=== PATIENT | male | born 1950 | race African-American/Black ===

== ENCOUNTER 2017-02-16 11:44 | Inpatient (IN) | payer OTHER, MEDICAID, MEDICARE ==
[~2017-02-16] VITALS: Ht 167.6 cm; Wt 51.0 kg
[2017-02-16] VITALS (8 sets, daily range): BP systolic 124–149; BP diastolic 77–94; PULSE 91–113; RESP 14–18; TEMP 96.4–102.9; O2SAT 98–100
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
[2017-02-16] MEDS ORDERED: METO25TA3 PO (13:42)
[2017-02-16] MEDS ORDERED: LISI10TA3 PO (13:42)
[2017-02-16] MEDS ORDERED: PRAD150C PO (13:42)
[2017-02-16] MEDS ORDERED: KEPP750T PO (13:42)
[2017-02-16] MEDS ORDERED: TIZA2TAB PO (13:42)
[2017-02-16] MEDS ORDERED: ZOCO20TA PO (13:42)
[2017-02-16] MEDS ORDERED: AMLO5TAB2 PO (13:42)
[2017-02-16] MEDS ORDERED: FURO40TA PO (13:42)
[2017-02-16] MEDS ORDERED: NON-500T13 PO (13:42)
[2017-02-16] MEDS ORDERED: OMEP20TA PO (13:42)
[2017-02-16] MEDS ORDERED: SODIUM CHLOR 0.9% 1000 ML INJ 1,000 ML IV ONE ×2 (13:45→14:30)
[2017-02-16] MEDS ORDERED: ACETAMINOPHEN 650 MG SUPP RECTAL ONE (13:45)
[2017-02-16] MEDS ORDERED: PIPERACIL-TAZO 4.5 GM PREMIX 100 ML IV ONE (14:00)
[2017-02-16] MEDS ORDERED: VANCOMYCIN INJ 1,000 MG in SODIUM CHLOR 0.9% 250 ML INJ 250 ML IV ONE (14:00)
--- NOTE | 2017-02-16 14:20 | RADRPT ---
EXAM DATE/TIME: 02/16/2017 13:35 [place] COMPARISON: No previous studies available for comparison. INDICATIONS : Fever. MEDICAL HISTORY : Hypercholesterolemia. Hypertension SURGICAL HISTORY : None. ENCOUNTER: Initial ACUITY: 1 day PAIN SCORE: Non-responsive. LOCATION: Bilateral chest FINDINGS: Nodular infiltrate is present in left mid and lower lung. Slight cardiomegaly seen. There are atheros clerotic calcifications of the aorta due to chronic atherosclerotic disease. CONCLUSION: Nodular infiltrate left lung most likely inflammatory and pneumonia. Followup is suggested. Pee Muñiz MD on February 16, 2017 at 14:18 Board Certified Radiologist. This report was verified electronically.
[2017-02-16 16:05] LABS: AUTOMATED NEUTROPHIL # 17.3 TH/MM3 (1.8-7.7); BASOPHIL % 0.1 % (0.0-2.0); HEMATOCRIT 43.6 % (39.0-51.0); HEMO FLAGS DIFF FINAL; LYMPH % 1.8 % (9.0-44.0); LYMPHOCYTE # 0.3 TH/MM3 (1.0-4.8); MEAN CELL VOLUME 84.8 FL (80.0-100.0); MEAN CORPUSCULAR HEMOGLOBIN 29.3 PG (27.0-34.0); MEAN CORPUSCULAR HGB CONC 34.6 % (32.0-36.0); NEUT % 93.1 % (16.0-70.0); PLATELET COUNT 345 TH/MM3 (150-450); RED BLOOD COUNT 5.14 MIL/MM3 (4.50-5.90); RED CELL DISTRIBUTION WIDTH 13.7 % (11.6-17.2); WHITE BLOOD COUNT 18.6 TH/MM3 (4.0-11.0)
[2017-02-16 16:19] LABS: BLOOD, URINE NEG (NEG); GLUCOSE,URINE NEG (NEG); HYALINE CAST, URINE 3 /lpf (RARE); KETONE, URINE NEG (NEG); MUCUS URINE MOD /lpf (OCC); NITRITE,URINE NEG (NEG); PH, URINE 5.5 (5.0-8.5); SQUAMOUS EPITHELIAL CELL URINE 1 /hpf (0-5)
[2017-02-16 16:21] LABS: ANION GAP 5 MEQ/L (5-15); AST (GOT) 42 U/L (15-37); BLOOD UREA NITROGEN 22 MG/DL (7-18); CHLORIDE 102 MEQ/L (98-107); GLOMERULAR FILTRATION RATE 75 ML/MIN (>89); MAGNESIUM 1.9 MG/DL (1.5-2.5); POTASSIUM 4.5 MEQ/L (3.5-5.1); SODIUM (NA) 136 MEQ/L (136-145); URINE COLOR ORANGE (YELLW/STRAW)
[2017-02-16 16:23] LABS: ALT (GPT) 28 U/L (12-78)
[2017-02-16 16:24] LABS: BACTERIA, URINE RARE /hpf; COMMENT (UR) CATH-CULTURE IND; CULTURE IF INDICATED CATH CULTURE IND
[2017-02-16 16:25] LABS: ALKALINE PHOSPHATASE 78 U/L (45-117)
[2017-02-16 16:36] LABS: APTT (PATIENT) 34.8 SEC (24.3-30.1); INTERNATIONAL NORMALIZED RATIO 1.1 RATIO; PROTHROMBIN TIME - PATIENT 12.6 SEC (9.8-11.6)
[2017-02-16 17:54] LABS: LACTIC ACID GHOST NOT REPORTABLE
[2017-02-16] MEDS ORDERED: BISACODYL 10 MG SUPP RECTAL PRN (18:00)
[2017-02-16] MEDS ORDERED: LACTULOSE SYRUP 20 GM/30 ML CUP PO PRN (18:00)
[2017-02-16] MEDS ORDERED: NALOXONE HCL 0.4 MG/ML AMP IV PRN (18:00)
[2017-02-16] MEDS ORDERED: ACETAMINOPHEN 325 MG TAB PO PRN (18:00)
[2017-02-16] MEDS ORDERED: MAGNESIUM HYDROXIDE SUSP 30 ML CUP PO PRN (18:00)
[2017-02-16] MEDS ORDERED: ONDANSETRON HCL 4 MG/2 ML VIAL IVP PRN (18:00)
[2017-02-16] MEDS ORDERED: SENNOSIDES 8.6 MG TAB PO PRN (18:00)
[2017-02-16] MEDS ORDERED: Vancomycin Consult Pharmacy 1 EA OTHER SCH (18:00)
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
[2017-02-16 19:06] LABS: CKMB 2.1 NG/ML (0.5-3.6)
[2017-02-16] MEDS: SODIUM CHLOR 0.9% 1000 ML INJ 1,000 ML IV SCH (19:08)
[2017-02-16] MEDS ORDERED: levETIRAcetam 250 MG TAB PO SCH (21:00)
[2017-02-16] MEDS: DOCUSATE SODIUM 50 MG/SENNA 8.6 MG TAB PO SCH (21:00)
[2017-02-16] MEDS: PIPERACIL-TAZO 3.375 GM PREMIX 50 ML IV SCH (23:33)
[2017-02-17] VITALS (7 sets, daily range): BP systolic 121–160; BP diastolic 82–107; PULSE 62–90; RESP 17–19; TEMP 96.2–99.4; O2SAT 95–100
[2017-02-17] MEDS: levETIRAcetam INJ 750 MG in SODIUM CHLORIDE 0.9% INJ 100 ML IV SCH ×2 (00:52→11:56)
[2017-02-17] MEDS: PIPERACIL-TAZO 3.375 GM PREMIX 50 ML IV SCH ×4 (04:56→23:11)
[2017-02-17 05:52] LABS: AUTOMATED NEUTROPHIL # 12.3 TH/MM3 (1.8-7.7); BASOPHIL % 0.1 % (0.0-2.0); HEMO FLAGS DIFF FINAL; LYMPH % 10.2 % (9.0-44.0); LYMPHOCYTE # 1.5 TH/MM3 (1.0-4.8); MEAN CELL VOLUME 85.9 FL (80.0-100.0); MEAN CORPUSCULAR HEMOGLOBIN 28.4 PG (27.0-34.0); MONO % 5.3 % (0.0-8.0); NEUT % 84.4 % (16.0-70.0); PLATELET COUNT 266 TH/MM3 (150-450); RED BLOOD COUNT 4.77 MIL/MM3 (4.50-5.90); RED CELL DISTRIBUTION WIDTH 13.9 % (11.6-17.2); WHITE BLOOD COUNT 14.5 TH/MM3 (4.0-11.0)
[2017-02-17 06:08] LABS: BICARBONATE 25.2 MEQ/L (21.0-32.0); POTASSIUM 4.9 MEQ/L (3.5-5.1)
[2017-02-17] MEDS: DOCUSATE SODIUM 50 MG/SENNA 8.6 MG TAB PO SCH ×2 (08:20→21:04)
[2017-02-17] MEDS: amLODIPine BESYLATE 5 MG TAB PO SCH (08:21)
[2017-02-17] MEDS: SODIUM CHLOR 0.9% 1000 ML INJ 1,000 ML IV SCH ×2 (08:21→21:22)
[2017-02-17] MEDS: PANTOPRAZOLE SOD 20 MG DELAYED RELEASE TAB PO SCH (08:21)
[2017-02-17] MEDS: PRAVASTATIN SOD 40 MG TAB PO SCH (08:21)
[2017-02-17] MEDS: LISINOPRIL 10 MG TAB PO SCH (08:21)
[2017-02-17] MEDS ORDERED: METOPROLOL TARTRATE 25 MG TAB PO SCH (09:00)
[2017-02-17] MEDS ORDERED: NON-FORMULARY DRUG (Simvastatin (Zocor) 20 MG) PO SCH (09:00)
[2017-02-17] MEDS ORDERED: NON-FORMULARY DRUG (Omeprazole 20 MG) PO SCH (09:00)
--- NOTE | 2017-02-17 13:16 | EKG ---
Date Performed: 02/17/2017 Time Performed: 01:01:13 PTAGE: 66 years EKG: ATRIAL FIBRILLATION WITH ABERRANT CONDUCTION OR VENTRICULAR PREMATURE COMPLEXES MARKED LEFT AXIS DEVIATION RIGHT BUNDLE BRANCH BLOCK Compared to prior tracing no significant change ABNORMAL EC G PREVIOUS TRACING : 02/16/2017 21.05 DOCTOR: Parish Schroeder Interpretating Date/Time 02/17/2017 13:15:47
--- NOTE | 2017-02-17 13:16 | EKG ---
Date Performed: 02/16/2017 Time Performed: 13:51:44 PTAGE: 66 years EKG: ATRIAL FIBRILLATION WITH RAPID VENTRICULAR RESPONSE WITH ABERRANT CONDUCTION OR VENTRICULAR PREMATURE COMPLEXES MARKED RIGHT AXIS DEVIATION RIGHT BUNDLE BRANCH BLOCK ABNORMAL ECG NO PREVIOUS TRACING DOCTOR: Parish Schroeder Interpretating Date/Time 02/17/2017 13:15:10
--- NOTE | 2017-02-17 13:16 | EKG ---
Date Performed: 02/16/2017 Time Performed: 21:05:45 PTAGE: 66 years EKG: ATRIAL FIBRILLATION WITH ABERRANT CONDUCTION OR VENTRICULAR PREMATURE COMPLEXES RIGHT BUNDL E BRANCH BLOCK LEFT ANTERIOR FASCICULAR BLOCK Compared to previous tracing, ventricular response to t he atrial fibrillation is slightly slower ABNORMAL ECG PREVIOUS TRACING : 02/16/2017 13.51 DOCTOR: Parish Schroeder Interpretating Date/Time 02/17/2017 13:15:39
--- NOTE | 2017-02-17 13:58 | HHI.PR ---
Subjective Remarks Follow up encephalopathy, pneumonia, sepsis. Patient's daughter is at bedside and states that the patient is more alert today. Still minimally verbal. He has not complained of chest pain. He denies pain, dyspnea. Objective Vitals Vital Signs Date Time Temp Pulse Resp B/P Pulse Ox O2 Delivery O2 Flow Rate FiO2 02/17/17 12:00 96.9 78 19 155/107 96 02/17/17 08:00 96.9 72 18 160/87 95 02/17/17 04:00 96.2 73 17 130/93 100 02/17/17 00:00 96.3 62 17 121/82 100 02/16/17 23:06 91 02/16/17 21:00 96.4 99 18 132/94 100 02/16/17 19:00 99.0 102 18 124/89 100 Nasal Cannula 2 02/16/17 18:30 106 16 129/85 98 Nasal Cannula 2 02/16/17 16:30 104 16 128/92 100 Nasal Cannula 2 02/16/17 14:30 108 18 126/92 100 Room Air 2 I/O 02/16/17 02/16/17 02/16/17 02/17/17 02/17/17 02/17/17 07:00 15:00 23:00 07:00 15:00 23:00 Intake Total 227 ml 536 ml 0 ml Balance 227 ml 536 ml 0 ml Intake Oral 0 ml 0 ml 0 ml IV Total 227 ml 536 ml # Voids 2 3 Result Diagram: 02/17/17 0419 02/17/17 0419 Imaging Last Impressions Chest X-Ray 02/16/17 1333 Signed Impressions: Service Date/Time: Thursday, February 16, 2017 13:35 - CONCLUSION: Nodular infiltrate left lung most likely inflammatory and pneumonia. Followup is suggested. Pee Muñiz MD Objective Remarks General: Elderly male in no acute distress. Heart: Irregular rhythm. Lungs: Decreased breath sounds in both bases. Breathing is nonlabored. Abdomen: Soft, nontender, nondistended. Extremities: No lower extremity edema. Psych: Alert, does not verbally answer questions. Procedures None Urinary Catheter: No Vascular Central Line Catheter: No A/P Problem List: (1) Pneumonia ICD Code: J18.9 Status: Acute (2) Afib ICD Code: I48.91 Status: Chronic (3) Severe sepsis ICD Code: A41.9 Status: Acute (4) HTN (hypertension) ICD Code: I10 Status: Chronic (5) Seizure disorder ICD Code: G40.909 Status: Chronic (6) Encephalopathy ICD Code: G93.40 Status: Acute Assessment and Plan 1. Sepsis secondary to pneumonia: Possibly aspiration pneumonia. Continue antibiotics, IV fluids. 2. Encephalopathy: Secondary to above. Per patient's family, his mental status has improved somewhat today. 3. Atrial fibrillation with RVR: Rate control is improved. Continue Pradaxa, metoprolol. Cardiology consult. 4. Mildly elevated troponin: Likely secondary to sepsis. 5. Hypertension: Continue amlodipine, lisinopril, metoprolol. Blood pressure has been elevated. Vasotec as needed. 6. Hyperlipidemia: Continue statin. 7. Seizure disorder: Continue Keppra. Seizure precautions. 8. Dysphagia: Continue speech therapy. Pure diet. 9. GI prophylaxis: Protonix. 10. DVT prophylaxis: SCDs, Pradaxa. Problem Qualifiers (1) Pneumonia: Qualified Code: J18.9 - Pneumonia of left lung due to infectious organism, unspecified part of lung Scotty Villegas MD Feb 17, 2017 13:58
[2017-02-17] MEDS ORDERED: ENALAPRILAT 1.25 MG/ML VIAL IV PUSH PRN (14:00)
[2017-02-17] MEDS: VANCOMYCIN 1,000 MG/NS 250 ML IV SCH ×2 (15:31)
--- NOTE | 2017-02-17 17:59 | MB ---
cc: HARINDER SAMANIEGO MD DATE OF CONSULTATION: 02/17/2017. REASON FOR CONSULTATION: Atrial fibrillation and minimally elevated troponin. HISTORY OF PRESENT ILLNESS: The patient is a 66-year-old gentleman who is nonverbal, or minimally verbal, who presented for a change in mental status and was found to have urosepsis and has already improved. Additionally, he was found to have mildly rapid atrial fibrillation, which has since improved. He normally takes Pradaxa for anticoagulation. All history is obtained from the daughter as the patient is nonverbal. PAST MEDICAL HISTORY: 1. Chronic atrial fibrillation on Pradaxa. 2. Patient's daughter reports normal nuclear stress test in October of this year. 3. Hypertension. 4. Hyperlipidemia. 5. Dementia. 6. Seizure. CURRENT MEDICATIONS: 1. Keppra. 2. Vancomycin. 3. Amlodipine. 4. Lisinopril. 5. Metoprolol tartrate 25 milligrams p.o. daily. 6. Pravachol 40 milligrams daily. 7. Zosyn. 8. Pradaxa 150 milligrams twice a day. ALLERGIES: NO KNOWN DRUG ALLERGIES. PHYSICAL EXAMINATION: VITAL SIGNS: Afebrile, pulse 90, respiratory rate 17, blood pressure 139/93, satting 96%. GENERAL: Nonverbal, chronically ill-appearing -[place] gentleman in no distress. NECK: No jugular venous distention. LUNGS: Clear to auscultation bilaterally. CARDIOVASCULAR: An irregularly irregular rhythm with a regular rate. No murmurs appreciated. ABDOMEN: Benign. EXTREMITIES: No edema. LABORATORY DATA: Sodium 142, potassium 4.9, chloride 111, bicarbonate 25.2, BUN 15, creatinine 0.97. Troponins are 0.07, 0.08 and 0.07. EKGS: EKG shows atrial fibrillation with right bundle-branch block initially at a rate of 100, now rates in the 80s with nonspecific S-T changes. IMPRESSION: 1. Atrial fibrillation. The patient has chronic atrial fibrillation and his Pradaxa has been re-started. I will change his metoprolol tartrate to twice a day for better rate control. 2. Elevated troponin. The patient's minimally elevated troponin is nonspecific, likely due to his urosepsis. His daughter reports a normal nuclear stress test earlier this year. Given the patient's overall condition, I do not think any further ischemic workup is warranted. I will be available on an as-needed basis. Please call with any further questions. MD LETTY Nolasco/STEPHANIE /5:51 PM /5:56 PM
[2017-02-17] MEDS: levETIRAcetam 250 MG TAB PO SCH (21:03)
[2017-02-17] MEDS: DABIGATRAN ETEXILATE 150 MG CAP PO SCH (21:04)
[2017-02-17] MEDS: METOPROLOL TARTRATE 25 MG TAB PO SCH (21:04)
[2017-02-18] VITALS (9 sets, daily range): BP systolic 121–154; BP diastolic 74–103; PULSE 60–85; RESP 16–18; TEMP 97.6–98.7; O2SAT 92–100
[2017-02-18] MEDS: PIPERACIL-TAZO 3.375 GM PREMIX 50 ML IV SCH ×4 (05:26→23:45)
[2017-02-18 06:30] LABS: AUTOMATED NEUTROPHIL # 9.5 TH/MM3 (1.8-7.7); BASOPHIL # 0.1 TH/MM3 (0-0.2); BASOPHIL % 0.5 % (0.0-2.0); EOSINOPHIL % 0.2 % (0.0-4.0); HEMATOCRIT 40.4 % (39.0-51.0); HEMO FLAGS DIFF FINAL; LYMPH % 13.8 % (9.0-44.0); LYMPHOCYTE # 1.7 TH/MM3 (1.0-4.8); MEAN CELL VOLUME 86.1 FL (80.0-100.0); MEAN CORPUSCULAR HEMOGLOBIN 27.7 PG (27.0-34.0); MEAN CORPUSCULAR HGB CONC 32.2 % (32.0-36.0); MONO % 7.9 % (0.0-8.0); NEUT % 77.6 % (16.0-70.0); PLATELET COUNT 283 TH/MM3 (150-450); RED BLOOD COUNT 4.69 MIL/MM3 (4.50-5.90); RED CELL DISTRIBUTION WIDTH 13.7 % (11.6-17.2); WHITE BLOOD COUNT 12.2 TH/MM3 (4.0-11.0)
[2017-02-18 06:50] LABS: BICARBONATE 25.5 MEQ/L (21.0-32.0); POTASSIUM 3.8 MEQ/L (3.5-5.1)
[2017-02-18] MEDS: DABIGATRAN ETEXILATE 150 MG CAP PO SCH ×2 (08:11→21:34)
[2017-02-18] MEDS: DOCUSATE SODIUM 50 MG/SENNA 8.6 MG TAB PO SCH ×2 (08:11→21:34)
[2017-02-18] MEDS: LISINOPRIL 10 MG TAB PO SCH (08:11)
[2017-02-18] MEDS: levETIRAcetam 250 MG TAB PO SCH ×2 (08:11→21:34)
[2017-02-18] MEDS: PRAVASTATIN SOD 40 MG TAB PO SCH (08:11)
[2017-02-18] MEDS: METOPROLOL TARTRATE 25 MG TAB PO SCH ×2 (08:11→21:35)
[2017-02-18] MEDS: amLODIPine BESYLATE 5 MG TAB PO SCH (08:12)
[2017-02-18] MEDS: PANTOPRAZOLE SOD 20 MG DELAYED RELEASE TAB PO SCH (08:12)
--- NOTE | 2017-02-18 14:36 | HHI.PR ---
Subjective Remarks Follow up encephalopathy, pneumonia, sepsis, atrial fibrillation. The patient's daughter is again at bedside and states that he continues to improve. She was concerned about his left leg earlier today, but now he is moving it normally. He appears to be more alert. He has not indicated any pain. Objective Vitals Vital Signs Date Time Temp Pulse Resp B/P Pulse Ox O2 Delivery O2 Flow Rate FiO2 02/18/17 12:21 83 02/18/17 12:00 98.1 68 18 121/74 97 02/18/17 08:21 60 97 02/18/17 08:00 98.2 80 17 149/103 100 02/18/17 04:00 98.3 80 17 154/87 100 02/18/17 00:00 98.7 76 18 130/77 100 02/17/17 22:57 71 02/17/17 20:00 99.4 84 18 146/87 100 02/17/17 16:00 98.6 90 17 139/93 96 I/O 02/17/17 02/17/17 02/17/17 02/18/17 02/18/17 02/18/17 06:59 14:59 22:59 06:59 14:59 22:59 Intake Total 536 ml 1040 ml 1600 ml 831 ml Output Total 200 ml 600 ml 650 ml Balance 536 ml 840 ml 1000 ml 181 ml Intake Oral 0 ml 480 ml 240 ml 240 ml IV Total 536 ml 560 ml 1360 ml 591 ml Output Urine Total 200 ml 600 ml 650 ml # Voids 3 # Bowel Movements 1 1 Result Diagram: 02/18/17 0508 02/18/17 0508 Imaging Last Impressions Chest X-Ray 02/16/17 1333 Signed Impressions: Service Date/Time: Thursday, February 16, 2017 13:35 - CONCLUSION: Nodular infiltrate left lung most likely inflammatory and pneumonia. Followup is suggested. Pee Muñiz MD Objective Remarks General: Elderly male in no acute distress. Heart: Irregular rhythm, tachycardic. Lungs: Decreased breath sounds in both bases. Breathing is nonlabored. Abdomen: Soft, nontender, nondistended. Extremities: No lower extremity edema. Psych: Alert, does not verbally answer questions. Procedures None Urinary Catheter: No Vascular Central Line Catheter: No A/P Problem List: (1) Pneumonia ICD Code: J18.9 Status: Acute (2) Afib ICD Code: I48.91 Status: Chronic (3) Severe sepsis ICD Code: A41.9 Status: Acute (4) HTN (hypertension) ICD Code: I10 Status: Chronic (5) Seizure disorder ICD Code: G40.909 Status: Chronic (6) Encephalopathy ICD Code: G93.40 Status: Acute Assessment and Plan 1. Sepsis secondary to pneumonia: Possibly aspiration pneumonia. Continue antibiotics, IV fluids. 2. Encephalopathy: Secondary to above. Mental status is improving. 3. Atrial fibrillation with RVR: Rate control is improved. Continue Pradaxa, metoprolol. Appreciate cardiology recommendations. 4. Mildly elevated troponin: Likely secondary to sepsis. 5. Hypertension: Continue amlodipine, lisinopril, metoprolol. Vasotec as needed. 6. Hyperlipidemia: Continue statin. 7. Seizure disorder: Continue Keppra. Seizure precautions. 8. Dysphagia: Continue speech therapy. Pure diet. 9. GI prophylaxis: Protonix. 10. DVT prophylaxis: SCDs, Pradaxa. Discharge Planning Possible discharge in next 1-2 days. I have recommended care home facility , however the patient's daughter is adamantly opposed to sending him to any facility. She states that she will take care of him at home. Problem Qualifiers (1) Pneumonia: Qualified Code: J18.9 - Pneumonia of left lung due to infectious organism, unspecified part of lung Scotty Villegas MD Feb 18, 2017 14:36
[2017-02-18] MEDS ORDERED: NS + KCL 20 MEQ INJ 1,000 ML IV SCH (14:45)
[2017-02-18] MEDS: VANCOMYCIN 1,000 MG/NS 250 ML IV SCH ×2 (15:00)
[2017-02-19] VITALS (10 sets, daily range): BP systolic 138–186; BP diastolic 80–115; PULSE 73–92; RESP 16–19; TEMP 96.6–99.2; O2SAT 96–100
[2017-02-19] MEDS: PIPERACIL-TAZO 3.375 GM PREMIX 50 ML IV SCH ×3 (06:24→18:15)
[2017-02-19] MEDS: amLODIPine BESYLATE 5 MG TAB PO SCH (09:41)
[2017-02-19] MEDS: DABIGATRAN ETEXILATE 150 MG CAP PO SCH ×2 (09:41→20:04)
[2017-02-19] MEDS: PANTOPRAZOLE SOD 20 MG DELAYED RELEASE TAB PO SCH (09:41)
[2017-02-19] MEDS: DOCUSATE SODIUM 50 MG/SENNA 8.6 MG TAB PO SCH ×2 (09:41→20:04)
[2017-02-19] MEDS: METOPROLOL TARTRATE 25 MG TAB PO SCH ×2 (09:41→20:04)
[2017-02-19] MEDS: LISINOPRIL 10 MG TAB PO SCH (09:41)
[2017-02-19] MEDS: levETIRAcetam 250 MG TAB PO SCH ×2 (09:41→20:04)
[2017-02-19] MEDS: PRAVASTATIN SOD 40 MG TAB PO SCH (09:42)
[2017-02-19 09:59] LABS: AUTOMATED NEUTROPHIL # 8.5 TH/MM3 (1.8-7.7); BASOPHIL # 0.1 TH/MM3 (0-0.2); BASOPHIL % 0.6 % (0.0-2.0); EOSINOPHIL % 0.2 % (0.0-4.0); HEMATOCRIT 41.7 % (39.0-51.0); HEMO FLAGS DIFF FINAL; LYMPH % 14.8 % (9.0-44.0); LYMPHOCYTE # 1.6 TH/MM3 (1.0-4.8); MEAN CELL VOLUME 84.8 FL (80.0-100.0); MEAN CORPUSCULAR HEMOGLOBIN 28.1 PG (27.0-34.0); MEAN CORPUSCULAR HGB CONC 33.1 % (32.0-36.0); MONO % 7.2 % (0.0-8.0); NEUT % 77.2 % (16.0-70.0); PLATELET COUNT 298 TH/MM3 (150-450); RED BLOOD COUNT 4.92 MIL/MM3 (4.50-5.90); RED CELL DISTRIBUTION WIDTH 13.9 % (11.6-17.2); WHITE BLOOD COUNT 10.9 TH/MM3 (4.0-11.0)
[2017-02-19 10:18] LABS: BICARBONATE 27.2 MEQ/L (21.0-32.0); POTASSIUM 3.7 MEQ/L (3.5-5.1)
[2017-02-19] MEDS ORDERED: PHARMACY ORDERED LAB ONE (15:45)
--- NOTE | 2017-02-19 15:48 | HHI.PR ---
Subjective Remarks Follow up sepsis, pneumonia, hypertension. No events reported by nursing. Family not at bedside at this time. Patient is nonverbal. Objective Vitals Vital Signs Date Time Temp Pulse Resp B/P Pulse Ox O2 Delivery O2 Flow Rate FiO2 02/19/17 12:00 98.4 92 17 144/99 98 02/19/17 11:03 138/80 02/19/17 09:13 186/89 02/19/17 08:00 97.1 87 18 150/111 99 02/19/17 04:00 98.8 88 18 160/106 100 02/19/17 00:00 96.6 73 16 150/105 100 02/18/17 21:00 85 02/18/17 20:00 98.2 75 16 148/88 92 02/18/17 16:00 97.6 80 17 137/75 97 I/O 02/18/17 02/18/17 02/18/17 02/19/17 02/19/17 02/19/17 06:59 14:59 22:59 06:59 14:59 22:59 Intake Total 831 ml 650 ml 1499 ml 575 ml Output Total 650 ml 1325 ml 1625 ml 800 ml 375 ml Balance 181 ml -675 ml -1625 ml 699 ml 200 ml Intake Oral 240 ml 650 ml 575 ml IV Total 591 ml 1499 ml Output Urine Total 650 ml 1325 ml 1625 ml 800 ml 375 ml Stool Total 0 ml # Voids 2 # Bowel Movements 1 0 4 Result Diagram: 02/19/17 0930 02/19/17 0930 Imaging Last Impressions Chest X-Ray 02/16/17 1333 Signed Impressions: Service Date/Time: Thursday, February 16, 2017 13:35 - CONCLUSION: Nodular infiltrate left lung most likely inflammatory and pneumonia. Followup is suggested. Pee Muñiz MD Objective Remarks General: Elderly male in no acute distress. Heart: Irregular rhythm, tachycardic. Lungs: Decreased breath sounds in both bases. Breathing is nonlabored. Abdomen: Soft, nontender, nondistended. Extremities: No lower extremity edema. Psych: Alert, nonverbal. Procedures None Urinary Catheter: No Vascular Central Line Catheter: No A/P Problem List: (1) Pneumonia ICD Code: J18.9 Status: Acute (2) Afib ICD Code: I48.91 Status: Chronic (3) Severe sepsis ICD Code: A41.9 Status: Acute (4) HTN (hypertension) ICD Code: I10 Status: Chronic (5) Seizure disorder ICD Code: G40.909 Status: Chronic (6) Encephalopathy ICD Code: G93.40 Status: Acute Assessment and Plan 1. Sepsis secondary to pneumonia: Possibly aspiration pneumonia. Continue antibiotics. 2. Encephalopathy: Secondary to above. Mental status is improving. 3. Atrial fibrillation with RVR: Rate control is improved. Continue Pradaxa, metoprolol. Appreciate cardiology recommendations. 4. Mildly elevated troponin: Likely secondary to sepsis. 5. Hypertension: Continue amlodipine, lisinopril, metoprolol. Vasotec as needed. BP elevated. Stop IV fluids. 6. Hyperlipidemia: Continue statin. 7. Seizure disorder: Continue Keppra. Seizure precautions. 8. Dysphagia: Continue speech therapy. Pure diet. 9. GI prophylaxis: Protonix. 10. DVT prophylaxis: SCDs, Pradaxa. 11. Continue PT/OT. Discharge Planning Possible discharge in next 1-2 days. I have recommended senior care facility , however the patient's daughter is adamantly opposed to sending him to any facility. She states that she will take care of him at home. He will need 24 hour care due to his cognitive status. Problem Qualifiers (1) Pneumonia: Qualified Code: J18.9 - Pneumonia of left lung due to infectious organism, unspecified part of lung Scotty Villegas MD Feb 19, 2017 15:48
[2017-02-19] MEDS: VANCOMYCIN 1,000 MG/NS 250 ML IV SCH ×2 (16:42)
[2017-02-20] VITALS (8 sets, daily range): BP systolic 121–175; BP diastolic 80–109; PULSE 80–113; RESP 16–19; TEMP 96.5–98.9; O2SAT 92–100
[2017-02-20] MEDS: PIPERACIL-TAZO 3.375 GM PREMIX 50 ML IV SCH ×4 (00:47→17:42)
[2017-02-20] MEDS ORDERED: VANCOMYCIN INJ 1,100 MG in SODIUM CHLOR 0.9% 250 ML INJ 250 ML IV SCH (06:00)
[2017-02-20 06:57] LABS: BICARBONATE 28.2 MEQ/L (21.0-32.0); POTASSIUM 3.9 MEQ/L (3.5-5.1)
[2017-02-20] MEDS: LISINOPRIL 10 MG TAB PO SCH (08:12)
[2017-02-20] MEDS: METOPROLOL TARTRATE 25 MG TAB PO SCH ×2 (08:12→21:03)
[2017-02-20] MEDS: PRAVASTATIN SOD 40 MG TAB PO SCH (08:12)
[2017-02-20] MEDS: DOCUSATE SODIUM 50 MG/SENNA 8.6 MG TAB PO SCH ×2 (08:12→21:03)
[2017-02-20] MEDS: DABIGATRAN ETEXILATE 150 MG CAP PO SCH ×2 (08:12→21:03)
[2017-02-20] MEDS: levETIRAcetam 250 MG TAB PO SCH ×2 (08:12→21:03)
[2017-02-20] MEDS: PANTOPRAZOLE SOD 20 MG DELAYED RELEASE TAB PO SCH (08:12)
[2017-02-20] MEDS: amLODIPine BESYLATE 5 MG TAB PO SCH (08:13)
[2017-02-20] MEDS ORDERED: amLODIPine BESYLATE 5 MG TAB PO ONE (11:30)
--- NOTE | 2017-02-20 11:31 | HHI.PR ---
Subjective Remarks Follow up pneumonia, sepsis, hypertension. Patient nonverbal. No family at bedside. Per nursing, no events overnight. Objective Vitals Vital Signs Date Time Temp Pulse Resp B/P Pulse Ox O2 Delivery O2 Flow Rate FiO2 02/20/17 08:00 97.8 80 17 170/109 100 02/20/17 04:00 96.5 83 16 160/95 100 02/20/17 00:00 98.8 88 16 152/97 92 02/19/17 20:00 99.2 83 16 163/115 96 02/19/17 19:40 90 02/19/17 18:15 98 Room Air 02/19/17 16:00 98.7 80 19 138/90 99 02/19/17 12:00 98.4 92 17 144/99 98 I/O 02/19/17 02/19/17 02/19/17 02/20/17 02/20/17 02/20/17 07:00 15:00 23:00 07:00 15:00 23:00 Intake Total 1499 ml 942 ml 100 ml 120 ml Output Total 800 ml 375 ml 1200 ml Balance 699 ml 567 ml -1100 ml 120 ml Intake Oral 575 ml 120 ml IV Total 1499 ml 367 ml 100 ml Output Urine Total 800 ml 375 ml 1200 ml # Voids 2 # Bowel Movements 0 4 1 Result Diagram: 02/19/17 0930 02/20/17 0606 Imaging Last Impressions Chest X-Ray 02/16/17 1333 Signed Impressions: Service Date/Time: Thursday, February 16, 2017 13:35 - CONCLUSION: Nodular infiltrate left lung most likely inflammatory and pneumonia. Followup is suggested. Pee Muñiz MD Objective Remarks General: Elderly male in no acute distress. Heart: Irregular rhythm. Lungs: Decreased breath sounds in both bases. Breathing is nonlabored. Abdomen: Soft, nontender, nondistended. Extremities: No lower extremity edema. Psych: Alert, nonverbal. Procedures None Urinary Catheter: No Vascular Central Line Catheter: No A/P Problem List: (1) Pneumonia ICD Code: J18.9 Status: Acute (2) Afib ICD Code: I48.91 Status: Chronic (3) Severe sepsis ICD Code: A41.9 Status: Acute (4) HTN (hypertension) ICD Code: I10 Status: Chronic (5) Seizure disorder ICD Code: G40.909 Status: Chronic (6) Encephalopathy ICD Code: G93.40 Status: Acute Assessment and Plan 1. Sepsis secondary to pneumonia: Possibly aspiration pneumonia. Continue antibiotics. 2. Encephalopathy: Secondary to above. Mental status is improving, reportedly near baseline. 3. Atrial fibrillation with RVR: Rate control is improved. Continue Pradaxa, metoprolol. Appreciate cardiology recommendations. 4. Mildly elevated troponin: Likely secondary to sepsis. 5. Hypertension: Continue lisinopril, metoprolol. Vasotec as needed. BP remains elevated. Increase amlodipine. 6. Hyperlipidemia: Continue statin. 7. Seizure disorder: Continue Keppra. Seizure precautions. 8. Dysphagia: Continue speech therapy. Pure diet. 9. GI prophylaxis: Protonix. 10. DVT prophylaxis: SCDs, Pradaxa. 11. Continue PT/OT. Discharge Planning Possible discharge tomorrow if arrangements can be made for safe discharge. I have recommended correction facility, however the patient's daughter is adamantly opposed to sending him to any facility. She states that she will take care of him at home. He will need 24 hour care due to his cognitive status. Problem Qualifiers (1) Pneumonia: Qualified Code: J18.9 - Pneumonia of left lung due to infectious organism, unspecified part of lung Scotty Villegas MD Feb 20, 2017 11:31
[2017-02-21] VITALS: BP 154/82; PULSE 86; RESP 17; TEMP 98.2; O2SAT 97
[2017-02-21] MEDS: PIPERACIL-TAZO 3.375 GM PREMIX 50 ML IV SCH ×4 (00:35→16:54)
[2017-02-21] MEDS: VANCOMYCIN 1,000 MG/NS 250 ML IV SCH ×4 (00:36→16:54)
[2017-02-21 04:00] VITALS: BP 168/98; PULSE 56; RESP 17; TEMP 96.8; O2SAT 97
[2017-02-21] MEDS: PANTOPRAZOLE SOD 20 MG DELAYED RELEASE TAB PO SCH (07:33)
[2017-02-21] MEDS: DOCUSATE SODIUM 50 MG/SENNA 8.6 MG TAB PO SCH (07:33)
[2017-02-21] MEDS: levETIRAcetam 250 MG TAB PO SCH (07:33)
[2017-02-21] MEDS: LISINOPRIL 10 MG TAB PO SCH (07:33)
[2017-02-21] MEDS: DABIGATRAN ETEXILATE 150 MG CAP PO SCH (07:33)
[2017-02-21] MEDS: PRAVASTATIN SOD 40 MG TAB PO SCH (07:33)
[2017-02-21] MEDS: METOPROLOL TARTRATE 25 MG TAB PO SCH (07:34)
[2017-02-21 08:00] VITALS: BP 170/104; PULSE 97; RESP 19; TEMP 98.7; O2SAT 98
[2017-02-21 12:00] VITALS: BP 126/88; PULSE 76; RESP 19; TEMP 97.8; O2SAT 96
--- NOTE | 2017-02-21 14:33 | HHI.FF ---
Face to Face Verification Diagnosis: (1) Encephalopathy (2) Afib (3) HTN (hypertension) (4) Pneumonia (5) Dementia Physical Therapy Order: Evaluate and Treat Occupational Therapy Order: Evaluate and Treat Speech Therapy Order: To Improve: Speech and communication skills, Cognitive skills, Swallowing Home Health Nursing Order: Nursing assessment with vital signs I have seen patient Eliceo Coburn on 02/21/17. My clinical findings support the need for the requested home health care services because: Ltd mobility - disease progression Deconditioned w/ increased weakness Limited ability to care for self Need for psychosocial assistance Impaired cognition/judgement High risk of falls I certify that my clinical findings support that this patient is homebound because: Impaired cognitive ability/safety Unsteady gait/balance Unsafe to leave home unassisted Need for psychosocial assistance Scotty Villegas MD Feb 21, 2017 14:33
[2017-02-21] MEDS ORDERED: METO25TA3 PO (14:54)
[2017-02-21] MEDS ORDERED: AMOX875T2 PO (14:54)
[2017-02-21] MEDS ORDERED: AMLO10 PO (14:54)
--- NOTE | 2017-02-21 14:57 | HHI.FF ---
Face to Face Verification Diagnosis: (1) Sepsis (2) Seizure disorder (3) Pneumonia (4) HTN (hypertension) (5) Afib (6) Encephalopathy (7) Dementia Physical Therapy Order: Evaluate and Treat Occupational Therapy Order: Evaluate and Treat Home Health Nursing Order: Nursing assessment with vital signs I have seen patient Eliceo Coburn on 02/21/17. My clinical findings support the need for the requested home health care services because: Ltd mobility - disease progression Deconditioned w/ increased weakness Limited ability to care for self Need for psychosocial assistance Impaired cognition/judgement High risk of falls I certify that my clinical findings support that this patient is homebound because: Impaired cognitive ability/safety Unsteady gait/balance Unsafe to leave home unassisted Need for psychosocial assistance Scotty Villegas MD Feb 21, 2017 14:57
--- NOTE | 2017-02-21 15:02 | HHI.PR ---
Subjective Remarks Follow-up pneumonia, dementia. The patient's daughter is concerned about his leg. She states that it is painful. There was no injury reported. She wants to take him home today. Objective Vitals Vital Signs Date Time Temp Pulse Resp B/P Pulse Ox O2 Delivery O2 Flow Rate FiO2 02/21/17 12:00 97.8 76 19 126/88 96 02/21/17 08:00 98.7 97 19 170/104 98 02/21/17 04:00 96.8 56 17 168/98 97 02/21/17 00:00 98.2 86 17 154/82 97 02/20/17 20:45 Room Air 02/20/17 20:45 113 02/20/17 20:00 98.9 92 17 175/89 97 02/20/17 16:00 98.8 91 17 121/80 99 I/O 02/20/17 02/20/17 02/20/17 02/21/17 02/21/17 02/21/17 07:00 15:00 23:00 07:00 15:00 23:00 Intake Total 1080 ml 480 ml 590 ml 1850 ml Output Total 1000 ml 600 ml 600 ml 1200 ml Balance 80 ml -120 ml -10 ml 650 ml Intake Oral 1080 ml 480 ml 240 ml 1800 ml IV Total 350 ml 50 ml Output Urine Total 1000 ml 600 ml 600 ml 1200 ml # Bowel Movements 2 1 1 Result Diagram: 02/19/17 0930 02/20/17 0606 Imaging Last Impressions Chest X-Ray 02/16/17 1333 Signed Impressions: Service Date/Time: Thursday, February 16, 2017 13:35 - CONCLUSION: Nodular infiltrate left lung most likely inflammatory and pneumonia. Followup is suggested. Pee Muñiz MD Objective Remarks General: Elderly male in no acute distress. Heart: Irregular rhythm. Lungs: Decreased breath sounds in both bases. Breathing is nonlabored. Abdomen: Soft, nontender, nondistended. Extremities: No lower extremity edema. Mild erythema of the left lower leg laterally. Tiny abrasion just below the left knee, ~3mm diameter. Psych: Alert, nonverbal. Procedures None Urinary Catheter: No Vascular Central Line Catheter: No A/P Problem List: (1) Pneumonia ICD Code: J18.9 Status: Acute (2) Afib ICD Code: I48.91 Status: Chronic (3) Severe sepsis ICD Code: A41.9 Status: Acute (4) HTN (hypertension) ICD Code: I10 Status: Chronic (5) Seizure disorder ICD Code: G40.909 Status: Chronic (6) Encephalopathy ICD Code: G93.40 Status: Acute Assessment and Plan 1. Sepsis secondary to pneumonia: Possibly aspiration pneumonia. Continue antibiotics. Transition to oral antibiotics at discharge. 2. Encephalopathy: Secondary to above. Mental status is improving, reportedly near baseline. 3. Atrial fibrillation with RVR: Rate control is improved. Continue Pradaxa, metoprolol. Appreciate cardiology recommendations. 4. Mildly elevated troponin: Likely secondary to sepsis. 5. Hypertension: Continue lisinopril, metoprolol, amlodipine. Vasotec as needed. BP improved. 6. Hyperlipidemia: Continue statin. 7. Seizure disorder: Continue Keppra. Seizure precautions. 8. Dysphagia: Continue speech therapy. Pure diet. 9. GI prophylaxis: Protonix. 10. DVT prophylaxis: SCDs, Pradaxa. 11. Continue PT/OT. Discharge Planning Possible discharge home today pending x-ray results. Patient's daughter is adamant that he should not go to senior care facility, although I have recommended that. I have discussed this with her at length. She is worried about sending him to SNF because of previous issues with [facility] of her [facility]. I have expressed to her that the patient needs 24-hour care. She has assured me that he will receive 24 hour care. At this time she will be staying home with him all the time, except when she can find someone else to come take care of him temporarily. She is actively seeking home care nursing. Paperwork was filled out for a Medicaid waiver for the patient. Problem Qualifiers (1) Pneumonia: Qualified Code: J18.9 - Pneumonia of left lung due to infectious organism, unspecified part of lung Scotty Villegas MD Feb 21, 2017 15:02
[2017-02-21 16:00] VITALS: BP 135/94; PULSE 84; RESP 19; TEMP 97.8; O2SAT 100
--- NOTE | 2017-02-21 16:00 | RADRPT ---
EXAM DATE/TIME: 02/21/2017 15:44 [facility] COMPARISON: No previous studies available for comparison. INDICATIONS : Pain MEDICAL HISTORY : Hypercholesterolemia. Hypertension SURGICAL HISTORY : None. ENCOUNTER: Initial ACUITY: 4 - 6 days PAIN SCORE: Non-responsive. LOCATION: Left Ankle FINDINGS: Three view exam was performed of the left ankle. The bony structures are in normal alignment. No ev idence of fracture, dislocation, or soft tissue swelling. The ankle mortise is intact. No radiopaqu e foreign bodies are seen. Bony mineralization is normal. CONCLUSION: Unremarkable examination of the left ankle. Gabe Roberts MD on February 21, 2017 at 15:58 Board Certified Radiologist. This report was verified electronically.
[2017-02-21] MEDS ORDERED: COMMODE 3-IN-11 MIS (16:09)
--- NOTE | 2017-02-21 16:11 | HHI.DCPOC ---
Discharge Care Plan Diagnosis: (1) Seizure disorder (2) Pneumonia (3) HTN (hypertension) (4) Afib (5) Encephalopathy (6) Sepsis (7) Dementia Goals to Promote Your Health * To prevent worsening of your condition and complications * To maintain your health at the optimal level Directions to Meet Your Goals Take your medications as prescribed Follow your dietary instruction Follow activity as directed Keep your appointments as scheduled Take your immunizations and boosters as scheduled If your symptoms worsen call your PCP, if no PCP go to Urgent Care Center or Emergency Room Smoking is Dangerous to Your Health. Avoid second hand smoke Call the 24-hour hour crisis hotline for domestic abuse at Scotty Villegas MD Feb 21, 2017 16:11
[2017-02-21] MEDS ORDERED: PRAD150C PO (16:31)
[2017-02-21] MEDS ORDERED: PHARMACY ORDERED LAB ONE (17:45)
--- NOTE | 2017-02-25 15:29 | HHI.PR ---
Addendum to Inpatient Note Additional Information I contacted the patient's daughter Juliet Palm via telephone to inquire about the patient's condition after discharge. She refused to provide further information and ended the call. Scotty Villegas MD Feb 25, 2017 15:29
== END 2017-02-21 19:17 | disposition home health service (06) | DRG 871 ==
LOC: NEDAMB 11:44 → NEDA 16:42 → N07A 20:02
PROVIDERS: ADMIT Family Medicine; ATTEND Family Medicine
DX: A41.9 Sepsis, unspecified organism (principal); J18.9 Pneumonia, unspecified organism; G93.41 Metabolic encephalopathy; I48.2 Chronic atrial fibrillation; R13.10 Dysphagia, unspecified; F03.90 Unspecified dementia, unspecified severity, without behavioral disturbance, psychotic disturbance, mood disturbance, and anxiety; R65.20 Severe sepsis without septic shock; I10 Essential (primary) hypertension; G40.909 Epilepsy, unspecified, not intractable, without status epilepticus; E78.5 Hyperlipidemia, unspecified; Z79.02 Long term (current) use of antithrombotics/antiplatelets; Z87.891 Personal history of nicotine dependence; R82.71 Bacteriuria
CPT/HCPCS: 71010; 73610; 80048; 80053; 80202; 81001; 82550; 82552; 83605; 83735; 84484; 85025; 85610; 85730; 87040; 87086; 87804; 93005; 96374; J1953; J2543; J3370; J3480; J7030; J7050; P9612